=== PATIENT | male | born 1995 | race Caucasian/White ===

== ENCOUNTER 2019-03-15 18:04 | Emergency (ER) | payer OTHER ==
[2019-03-15] MEDS ORDERED: OXYCODONE-ACETAMINOPHEN 5-325 MG TABLET PO ONE (18:59)
[2019-03-15] MEDS ORDERED: ONDANSETRON 4 MG TAB.RAPDIS PO ONE (18:59)
--- NOTE | 2019-03-15 19:14 | ER Document Report ---
HPI - HPI Time Seen by Provider: 03/15/19 18:48 Pain Level: 3 Context: Patient is a 23-year-old male who presents to the emergency department with a dental injury. Patient states about an hour prior to arrival he was playing softball when a ground ball popped up and smacked him in the mouth. Patient reports his front 2 teeth are now pushed back and are bleeding. Patient reports 2 lacerations to the inside of the top lip that also continue to lose. Patient denies loss of consciousness. Patient denies any nosebleed. Patient denies head or neck pain. Patient reports nausea and significant dental pain. Patient reports his tetanus shot is up-to-date. - CONSTITUTIONAL Constitutional: DENIES: Fever, Chills - EENT EENT: DENIES: Sore Throat, Ear Pain, Eye problems - NEURO Neurology: DENIES: Headache, Weakness, Vision blurred, Dizzinesss / Vertigo - CARDIOVASCULAR Cardiovascular: DENIES: Chest pain - RESPIRATORY Respiratory: DENIES: Trouble Breathing, Coughing - GASTROINTESTINAL Gastrointestinal: DENIES: Abdominal Pain, Black / Bloody Stools - URINARY Urinary: DENIES: Dysuria, Urgency, Frequency - MUSCULOSKELETAL Musculoskeletal: DENIES: Extremity pain Past Medical History - General Information source: Patient - Social History Smoking Status: Former Smoker Chew tobacco use (# tins/day): Yes Frequency of alcohol use: Occasional Drug Abuse: None Lives with: Family Family History: None Patient has suicidal ideation: No Patient has homicidal ideation: No - Past Medical History Cardiac Medical History: Reports: None Pulmonary Medical History: Reports: None EENT Medical History: Reports: None Neurological Medical History: Reports: None Endocrine Medical History: Reports: None Renal/ Medical History: Reports: None. Denies: Hx Peritoneal Dialysis Malignancy Medical History: Reports None GI Medical History: Reports: None Musculoskeletal Medical History: Reports None Skin Medical History: Reports None Psychiatric Medical History: Reports: None Traumatic Medical History: Reports: None Infectious Medical History: Reports: None Past Surgical History: Reports: Other - REMOVAL OF NASAL POLYPS Vertical Provider Document - CONSTITUTIONAL Agree With Documented VS: Yes Exam Limitations: No Limitations General Appearance: Moderate Distress - INFECTION CONTROL TRAVEL OUTSIDE OF THE [place] IN LAST 30 DAYS: No - HEENT Mouth Diagram: 1 - TWO TEETH PUSHED BACK ABOUT 2-3 MM, STILL INTACT TO GUM - THE TEETH DO NOT MOVE WHEN PALPATED. + OOZING OF BLOOD FROM GUMLINE. Notes: There is no allen sign, raccoon eyes, clear fluid or blood coming from the nose or ears. Patient does have a small quarter of a centimeter superficial laceration noted to the top lip. Patient does have 2 lacerations noted inside of the mouth located underneath the top lip. There is an active ooze of blood coming from the lacerations and from the gumline where the teeth have been displaced. Patient denies jaw pain is able to have full range of motion and open the jaw without difficulty. Course - Re-evaluation Re-evalutation: 03/15/19 19:14 Will medicate for nausea, pain and obtain a facial x-ray. 03/15/19 19:53 Patient's bleeding has subsided from his gum and wound. Patient appears much more comfortable after receiving pain medication. Ultimately I did explain to the patient he needs to follow-up with dental. 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 Patient reports he will go to night in follow-up. I did inform the patient that if he was unable to go tonight he definitely needs to follow-up tomorrow. I did discuss the case with Dr. Lora my supervising physician in regards to his facial x-ray, there is no acute fr acture noted, at this time patient does not require oral antibiotics. 03/15/19 19:54 - Vital Signs Vital signs: Temp Pulse Resp BP Pulse Ox 98.9 F 101 H 17 156/88 H 97 03/15/19 18:08 03/15/19 18:08 03/15/19 18:08 03/15/19 18:08 03/15/19 18:08 - Diagnostic Test Radiology reviewed: Reports reviewed Radiology results interpreted by me: 03/15/19 19:26 Facial Bones X-Ray 03/15/19 18:56 IMPRESSION: NO FOREIGN BODY OR FRACTURE OF THE FACIAL BONES. Discharge - Discharge Clinical Impression: Dental injury Qualifiers: Encounter type: initial encounter Qualified Code(s): S09.93XA - Unspecified injury of face, initial encounter Condition: Stable Disposition: HOME, SELF-CARE Additional Instructions: Today you are seen in the emergency department for dental injury from a softball. It does appear that 2 of your front teeth are jammed. I did perform an x-ray which is negative for any acute fracture. Ultimately do need to follow-up with a dentist. You have stated you are able to follow-up with them actually tonight since you are active duty and work in a dental platoon. If you are unable to get to them tonight please make sure that you make it a priority to see them tomorrow. It is very important that you have dental follow-up. At this time you do not require oral antibiotics. The small lacerations inside the mouth will heal on their own. The small laceration on the outside does not appear to need a stitch at this time.
--- NOTE | 2019-03-15 19:23 | RADIOLOGY REPORT (SQ) ---
EXAM DESCRIPTION: FACIAL BONES COMPLETED DATE/TIME: 03/15/2019 7:13 pm REASON FOR STUDY: hit in the mouth with softball COMPARISON: None. NUMBER OF VIEWS: Three view. TECHNIQUE: Images of the facial bones acquired. LIMITATIONS: None. FINDINGS: ORBITS: No fracture. No foreign body. SINUSES: No mucosal thickening. No air fluid levels. FACIAL BONES: No fracture. OTHER: No other significant finding. IMPRESSION: NO FOREIGN BODY OR FRACTURE OF THE FACIAL BONES. TECHNICAL DOCUMENTATION: JOB ID: [id number] [email or web address]- All Rights Reserved Reading location - IP/workstation name: [email or web address]
[2019-03-15] MEDS ORDERED: HYDROCODONE/ACETAMINOPHEN 5-325 MG (6 TAB/ER DISP) PO PRN (19:52)
[2019-03-15 20:17] VITALS: BP 129/86
== END 2019-03-15 20:05 | disposition home or self-care (01) ==
LOC: ER 18:04
DX: S09.93XA Unspecified injury of face, initial encounter (principal); W21.07XA Struck by softball, initial encounter; Y93.64 Activity, baseball; Z87.891 Personal history of nicotine dependence
CPT/HCPCS: 70150; S0119; 99283